=== PATIENT | female | born 1965 | race Caucasian/White ===

== ENCOUNTER 2018-03-11 07:49 | Outpatient (CLI) | payer OTHER | END 2018-03-11 07:50 | disposition home or self-care (01) | LOC: BICMAMMO 07:49 | PROVIDERS: ATTEND Obstetrics & Gynecology | DX: Z12.31 Encounter for screening mammogram for malignant neoplasm of breast (principal) | CPT/HCPCS: 77063; 77067 ==

== ENCOUNTER 2020-05-24 08:00 | Outpatient (CLI) | payer OTHER ==
--- NOTE | 2020-05-24 09:30 | ULT ---
CAROTID DOPPLER: Ultrasound and Doppler study is performed on the extracranial carotid arteries. INDICATION: Dizziness and hypertension. FINDINGS: Ultrasound images show mild echogenic plaque in the bulb regions bilaterally. Velocity recordings in the right common carotid artery are borderline for significance recorded at 13 2 cm/s. This suggests stenosis in the 50% diameter range which could indicate hemodynamic significan ce. Velocities in both ICAs are upper normal for significance with a right velocity at 114 cm/s systolic and left velocities at 121 cm/s systolic (velocities below 125 cm/s systolic do not indicate hemodyna lorenzo significance). Incidentally noted is a complex thyroid nodule in the left lobe of the thyroid measuring approximatel y 1.0 cm. Recommend dedicated thyroid ultrasound exam. IMPRESSION: 1. Mild echogenic plaque in both bulbs. 2. Increased velocities in the right common carotid artery and borderline velocities in the internal carotid arteries. Suggest further evaluation with CTA neck. 3. Incidentally noted is a complex nodule in the left lobe of the thyroid. Recommend dedicated thyr oid ultrasound. POS: OFF
== END 2020-05-24 08:01 | disposition home or self-care (01) ==
LOC: SCSULT 08:00
PROVIDERS: ATTEND Family Medicine
DX: I10 Essential (primary) hypertension (principal); R00.0 Tachycardia, unspecified; R42 Dizziness and giddiness; E04.1 Nontoxic single thyroid nodule
CPT/HCPCS: 36415; 80053; 80061; 80158; 85025; 93880

== ENCOUNTER 2020-06-02 10:25 | Outpatient (CLI) | payer OTHER ==
--- NOTE | 2020-06-02 11:52 | MMO ---
Bilateral MAMMO Bilat Screen [id number]. CLINICAL HISTORY: Patient is 54 years old and is seen for screening. The patient has no family history of breast cancer. The patient has no personal history of cancer. VIEWS: The views performed were: bilateral craniocaudal with tomosynthesis and bilateral mediolateral oblique with tomosynthesis. FILMS COMPARED: The present examination has been compared to a prior imaging study performed at [facility] on 03/11/2018. This study has been interpreted with the assistance of computer-aided detection. MAMMOGRAM FINDINGS: There are scattered fibroglandular densities. There are no suspicious masses, suspicious calcifications, or new areas of architectural distortion. IMPRESSION: THERE IS NO MAMMOGRAPHIC EVIDENCE OF MALIGNANCY. A ROUTINE FOLLOW-UP MAMMOGRAM IN 1 YEAR IS RECOMMENDED. THE RESULTS OF THIS EXAM WERE SENT TO THE PATIENT. ACR BI-RADS Category 1 - Negative MAMMOGRAPHY NOTE: 1. A negative mammogram report should not delay a biopsy if a dominant of clinically suspicious mass is present. 2. Approximately 10% to 15% of breast cancers are not detected by mammography. 3. Adenosis and dense breasts may obscure an underlying neoplasm. Reported by: ZENAIDA BARNES MD Electonically Signed: [id number]
== END 2020-06-02 10:26 | disposition home or self-care (01) ==
LOC: BICMAMMO 10:25
PROVIDERS: ATTEND Obstetrics & Gynecology
DX: Z12.31 Encounter for screening mammogram for malignant neoplasm of breast (principal)
CPT/HCPCS: 77063; 77067

== ENCOUNTER 2021-06-05 08:10 | Outpatient (CLI) | payer BC | END 2021-06-05 08:11 | disposition home or self-care (01) | LOC: BICMAMMO 08:10 | PROVIDERS: ATTEND Obstetrics & Gynecology | DX: Z12.31 Encounter for screening mammogram for malignant neoplasm of breast (principal) | CPT/HCPCS: 77063; 77067 ==

== ENCOUNTER 2023-10-24 14:28 | Outpatient (CLI) | payer BC | END 2023-10-24 14:29 | disposition home or self-care (01) | LOC: BICRAD 14:28 | PROVIDERS: ATTEND Family Medicine | DX: R05.1 Acute cough (principal) | CPT/HCPCS: 71046 ==